=== PATIENT | male | born 1975 | race Caucasian/White ===

== ENCOUNTER 2021-01-16 01:01 | Emergency (ER) | payer OTHER, SELFPAY ==
--- NOTE | ~2021-01-16 | XR_ITS ---
EXAMINATION: XR chest 2V 01/16/2021 01:54 INDICATION: Shortness of breath PROCEDURE: 2 view chest COMPARISON: 07/01/2016 FINDINGS: The lungs are clear. The cardiomediastinal silhouette is within normal limits. There are no pleural effusions. There is no pneumothorax suspected. IMPRESSION: 1: NO ACUTE CARDIOPULMONARY DISEASE. Reviewed, dictated and finalized at location A.
--- NOTE | 2021-01-16 01:02 | ECG_ITS ---
Measurements Intervals [place] Rate: 82 P: 40 LA: 130 QRS: -5 QRSD: 89 T: 65 QT: 335 QTc: 392 Interpretive Statements SINUS RHYTHM DELAYED PRECORDIAL R/S TRANSITION BASELINE WANDER- III BORDERLINE ECG Electronically Signed On 01-16-2021 6:21:13 CDT by Cricket Corey D.O.
[2021-01-16 01:05] VITALS: BP 156/89; PULSE 104; RESP 20; TEMP 36.2; O2SAT 100
[2021-01-16 01:29] LABS: Anion Gap 8 mmol/L (8-16); Blood Urea Nitrogen 16 mg/dL (9-20); Calcium 9.1 mg/dL (8.4-10.2); Carbon Dioxide 28 mmol/L (22-30); Chloride 104 mmol/L (98-107); Estimated CRCL calculation 133 ml/min; Estimated Glomerular Filt Rate > 60; Glucose 103 mg/dL (65-110); Potassium 3.8 mmol/L (3.4-5.0); Sodium 140 mmol/L (137-145)
[2021-01-16 01:36] LABS: Basophils Percent Auto 0.4 % (0.2-1.2); Eosinophils Absolute Auto 0.2 K/mm3 (0-0.3); Eosinophils Percent Auto 2.5 % (0-4.4); Hematocrit 39.8 % (42.0-52.0); Hemoglobin 13.4 g/dL (14.0-18.0); Immature Granulocyte Absolute 0.02 K/mm3 (0.00-0.031); Immature Granulocyte Percent A 0.2 % (0-0.5); Lymphocytes Absolute Auto 3.12 K/mm3 (0.9-3.2); Lymphocytes Percent Auto 33.4 % (18.3-44.2); Mean Corpuscular HGB Conc 33.7 g/dl (32-36); Mean Corpuscular Hemoglobin 31.6 pg (26-34); Mean Corpuscular Volume 93.9 fl (80-100); Mean Platelet Volume 9.5 fl (7.4-10.4); Monocytes Absolute Auto 0.6 K/mm3 (0.1-0.6); Monocytes Percent Auto 6.3 % (2.6-8.5); Neutrophils Absolute Auto 5.3 K/mm3 (1.3-6.7); Neutrophils Percent Auto 57.2 % (45.5-73.1); Platelet Count Result 246 k/mm3 (150-375); Red Blood Count 4.24 M/mm3 (4.6-6.20); Red Cell Distribution Width 13.8 % (11.5-14.5); White Blood Count 9.3 K/mm3 (4.5-10.0)
[2021-01-16 02:15] VITALS: BP 130/83; PULSE 81; RESP 20; O2SAT 99
[2021-01-16 02:16] VITALS: O2SAT 100
--- NOTE | 2021-01-16 03:32 | ED.SOB ---
HPI - SOB/Dyspnea General Chief Complaint: Shortness of Breath/Dyspnea Stated Complaint: woke up breathing heavy Time Seen by Provider: 01/16/21 02:16 Source: patient and RN notes reviewed Mode of arrival: ambulatory Limitations: no limitations History of Present Illness HPI Narrative: This is a 45 year old male who presents for evaluation of shortness of breath. He states he felt fine when he went to sleep last night. He woke up around midnight breathing hard and feeling short of breath. He thought his heart was racing but his watch reported his heart rate was normal. He denies associated nausea, vomiting, chest pain. He states he felt like he ran mile and this feeling lasted for 45 minutes. He reports mild shortness of breath with walking around here but otherwise his symptoms have all resolved. He denies calf pain or new edema. He denies recent surgery or travel. Denies cardiac or lung disease. Related Data Home Medications Medication Instructions Recorded Confirmed cyclobenzaprine 10 mg tablet 10 mg PO BID PRN tablet 06/03/20 06/04/20 hydrocodone 7.5 mg-acetaminophen 1 tablet PO Q6H PRN 06/03/20 06/04/20 325 mg tablet ibuprofen 800 mg tablet 800 mg PO Q6H 06/03/20 06/04/20 irbesartan 150 mg tablet 150 mg PO DAILY 06/03/20 06/04/20 Allergies Allergy/AdvReac Type Severity Reaction Status Date / Time No Known Allergies Allergy Mild Verified 01/16/21 02:16 Review of Systems Review of Systems: All systems reviewed & are unremarkable except as noted in HPI and below PMFSH Past Medical History Medical History Back pain Hyperlipidemia Hypertension Social History Social History Smoking status: Former smoker Smoking end date: 04/03/07 Alcohol intake: current Exam Const: General: alert Nutritional Appearance: obese Orientation/consciousness: patient oriented x3 Eyes: EOM: EOMs intact bilaterally Chest: Chest palpation & inspection: normal inspection of the chest Resp: Effort & Inspection: normal respiratory effort and no retractions Auscultation: clear to auscultation bilaterally Cardio: Rate: regular rate Rhythm: regular rhythm Heart sounds: no murmurs GI: GI Palp: Yes Soft to palpation, No Tenderness to palpation present (GI) and No Guarding due to palpation present (GI) Auscultation: normal bowel sounds Skin: General skin exam: normal color Rashes: no rashes Neuro: General: patient oriented x3, moves all extremities and CN's II-XI intact bilaterally Extrem: General: normal to inspection Psych: Mental Status: mental status grossly normal Affect: normal affect Course Reevaluation(s) Reevaluation #1: PAtient has no complaints at this time. His evaluated has esperanza unremarkable and his vitals are stable at this time. cardiac evaluated normal currently. D dimer is negative. Date: 01/16/21 Time: 05:15 Vital Signs Vital signs: Vital Signs Temperature 97.2 F L 01/16/21 01:05 Pulse Rate 104 H 01/16/21 01:05 Respiratory Rate 20 01/16/21 01:05 Blood Pressure 156/89 H 01/16/21 01:05 Pulse Oximetry 100 01/16/21 01:05 Temperature 97.2 F L 01/16/21 01:05 Pulse Rate 83 01/16/21 05:29 Respiratory Rate 19 01/16/21 05:29 Blood Pressure 130/81 01/16/21 05:29 Pulse Oximetry 100 01/16/21 05:29 MDM - SOB/Dyspnea Lab Data Attestation: I reviewed the patient's lab results. Result diagrams: 01/16/21 01:13 01/16/21 01:13 Labs: Lab Results 01/16/21 01/16/21 01/16/21 Range/Units 01:11 01:11 01:13 WBC 9.3 (4.5-10.0) K/mm3 RBC 4.24 L (4.6-6.20) M/mm3 Hgb 13.4 L (14.0-18.0) g/dL Hct 39.8 L (42.0-52.0) % MCV 93.9 (80-100) fl MCH 31.6 (26-34) pg MCHC 33.7 (32-36) g/dl RDW 13.8 (11.5-14.5) % Plt Count 246 (150-375) k/mm3 MPV 9.5 (7.4-10.4) fl Immature Gran % (Auto)
[2021-01-16 03:42] VITALS: BP 138/84; PULSE 80; RESP 16; O2SAT 100
[2021-01-16 03:53] LABS: D Dimer 0.32 ug/mL (<0.48)
[2021-01-16 04:07] LABS: NT Pro B Type Natriuretic Pept 28 pg/mL (5-100); Troponin I < 0.012 ng/mL (0.000-0.034)
[2021-01-16 05:04] VITALS: BP 132/89; PULSE 80; RESP 18; O2SAT 100
[2021-01-16 05:29] VITALS: BP 130/81; PULSE 83; RESP 19; O2SAT 100
== END 2021-01-16 05:34 | disposition home or self-care (01) ==
PROVIDERS: Emergency Provider General Practice; PCP Emergency Medicine
DX: R06.01 Orthopnea (principal); E78.5 Hyperlipidemia, unspecified; I10 Essential (primary) hypertension; Z87.891 Personal history of nicotine dependence; R94.31 Abnormal electrocardiogram [ECG] [EKG]
CPT/HCPCS: 36415; 71046; 80048; 83735; 83880; 84484; 85025; 85380; 93005; 99284

== ENCOUNTER 2021-10-10 10:23 | Emergency (ER) | payer OTHER, SELFPAY ==
[2021-10-10 10:41] VITALS: BP 136/88; PULSE 109; RESP 16; TEMP 36.4; O2SAT 99
--- NOTE | 2021-10-10 12:52 | ED.ANIMALBIT ---
HPI - Animal Bite General Chief Complaint: Animal Bite Stated Complaint: bit by 2 dogs Time Seen by Provider: 10/10/21 11:48 History of Present Illness HPI narrative: 46-year-old male presents secondary to dog bites. He states he went to get his garbage cans in from the street and the neighbors gate was open and his dogs were out. He did walk around to his own backyard and put the garbage cans away. He came back to his house and he saw that the neighbors gate was still open and the neighbor was gone so he is going to get the dogs and put him in their backyard. He states he called the dogs and they started growling and then charged him and attacked him. He sustained a puncture wound laceration to the back of the right leg around the knee area is got another abrasion to the right lateral aspect of his knee as well as an abrasion to the right lower aspect of his abdomen. Did not get knocked to the ground. He had no loss conscious. Is not up-to-date on his tetanus status. Related Data Home Medications Medication Instructions Recorded Confirmed cyclobenzaprine 10 mg tablet 10 mg PO BID PRN Pain 06/03/20 09/28/21 hydrocodone 7.5 mg-acetaminophen 1 tablet PO Q6H PRN Pain 06/03/20 09/28/21 325 mg tablet irbesartan 150 mg tablet 150 mg PO DAILY 06/03/20 09/28/21 Allergies Allergy/AdvReac Type Severity Reaction Status Date / Time No Known Allergies Allergy Mild Verified 10/10/21 10:46 Review of Systems Review of Systems: CONSTITUTIONAL: Denies fever, chills, or sweats. EYES: Denies visual changes, redness, or discharge. ENT: Denies rhinorrhea, congestion, sore throat, or otalgia. CARDIOVASCULAR: Denies chest pain, palpitations, or edema. RESPIRATORY: Denies cough or dyspnea. GASTROINTESTINAL: Denies abdominal pain, nausea, vomiting, or diarrhea. GENITOURINARY: Denies dysuria or hematuria. SKIN: Denies rash or itching. MUSCULOSKELETAL: As per HPI extensive puncture wounds and superficial lacerations NEUROLOGIC: Denies headache, numbness, or weakness. PSYCHIATRIC: Denies anxiety or depression. [facility] Past Medical History Medical History Back pain Hyperlipidemia Hypertension Social History Social History Smoking status: Never smoker Smoking end date: 04/03/07 Alcohol intake: current Exam Narrative: APPEARANCE: Well appearing, no pain or distress, well-nourished. Head normocephalic and atraumatic. EYES: PERRLA/EOMI, conjunctivae very clear. NOSE: Normal with no drainage EARS:TMS clear Aury Orellana, with good light reflex. THROAT: Pharynx clear, no exudate. NECK: Supple. No adenopathy, no masses. RESPIRATORY: Airway patent, respirations nonlabored. Clear to auscultation bilaterally, no rales, rhonchi, wheezing. CARDIOVASCULAR: Regular rate and rhythm without murmurs, rubs, or gallops. ABDOMINAL: Soft, nontender, nondistended, no hepatosplenomegaly. Noted to have about a 2 cm abrasion to the right lower abdominal wall Musculoskeletal: Moves all extremities. Strength/ROM intact, No edema, No calf tenderness. Posterior aspect of the left knee noted to have some superficial abrasions and 1 puncture wound is about 1 cm in length. To the right knee on the lateral aspect is got an abrasion approximately 2 cm in diameter. No active bleeding no foreign bodies noted NEURO: Alert. Cranial nerves II through XII intact. Normal gait. Good coordination. Nonfocal examination. SKIN:: Warm, dry. Normal Color PSYCHIATRIC: Normal affect/mood, normal interaction Course Vital Signs Vital signs: Vital Signs Temperature 97.6 F 10/10/21 10:41 Pulse Rate 109 H 10/10/21 10:41 Respiratory Rate 16 10/10/21 10:41 Blood Pressure 136/88 10/10/21 10:41 Pulse Oximetry 99 10/10/21 10:41 Oxygen Delivery Room Air 10/10/21 10:41 Temperature 97.6 F 10/10/21 10:41 Pulse Rate 109 H 10/10/21 10:41 Respiratory Rate
[2021-10-10] MEDS: TETANUS,DIPHTHERIA,AC PERTUSSIS ADULT (0.5 ML) BOOSTRIX IM (12:59)
--- NOTE | 2021-10-10 13:02 | PC.NURSE ---
ADACEL Tdap given per VO Dr. Romo/RB Magdaleno, RN
[2021-10-10 13:07] VITALS: BP 136/88; PULSE 78; RESP 16; TEMP 36.8; O2SAT 98
== END 2021-10-10 13:14 | disposition home or self-care (01) ==
PROVIDERS: Emergency Provider Emergency Medicine; PCP Emergency Medicine
DX: S81.851A Open bite, right lower leg, initial encounter (principal); S81.852A Open bite, left lower leg, initial encounter; E78.5 Hyperlipidemia, unspecified; I10 Essential (primary) hypertension; Z23 Encounter for immunization; W54.0XXA Bitten by dog, initial encounter
CPT/HCPCS: 90471; 90715; 99283

== ENCOUNTER 2024-05-15 19:17 | Emergency (ER) | payer OTHER, SELFPAY ==
--- NOTE | ~2024-05-15 | XR_ITS ---
CHEST RADIOGRAPH, PA AND LATERAL CLINICAL HISTORY: sob . COMPARISON: 01/16/2021 TECHNIQUE: PA and lateral views of the chest. FINDINGS The cardiomediastinal silhouette is unremarkable. The lungs are clear. Visualized osseous structures and soft tissues are unremarkable. IMPRESSION: No focal infiltrate or effusion. Reviewed, dictated and finalized at location A. CE COMMUNICATIONS DISPATCHER
--- NOTE | 2024-05-15 19:19 | ECG_ITS ---
Test Date: 2024-05-15 19:24:33 Measurements Intervals [place] Rate: 79 P: 44 ND: 132 QRS: -10 QRSD: 92 T: 63 QT: 363 QTc: 417 Interpretive Statements SINUS RHYTHM BORDERLINE R WAVE PROGRESSION, ANTERIOR LEADS BORDERLINE ST-T WAVE ABNORMALITY- HIGH LATERAL LEADS BASELINE ARTIFACT- I, III, AVL, V2 BORDERLINE ECG No previous ECG available for comparison Electronically Signed On 05-16-2024 05:28:54 EXCHANGE SPECIALIST by Cricket Corey D.O.
--- OUTSIDE RECORDS SUMMARY | 2024-05-15 19:19 | XMS_ITS | Clinical Summary ---
Author Organization [facility] Address [address] [place] [address] Care Team Providers Care Abstract Searcher Name Role Phone Koffi Talamantes MD Primary Care Provider Allergies No known active allergies Medications HYDROcodone-acet aminophen 7.5-325 MG tablet Take 1 tablet by mouth 3 (three) times daily as needed. 05/05/2020 Active cyclobenzaprine 10 MG tablet Take 10 mg by mouth 2 (two) times daily as needed. 05/05/2020 Active ibuprofen 800 MG tablet Take 800 mg by mouth every 8 (eight) hours as needed for Pain. 05/05/2020 Active Social History Tobacco Use Types Packs/Day Years Used Date Smoking Tobacco: Never Smokeless Tobacco: Never Alcohol Use Standard Drinks/Week Comments Never 0 (1 standard drink = 0.6 oz pur e alcohol) AUDIT-C Answer Date Recorded Q1: How often do you have a drink containing alc ohol? Never 05/22/2020 Average Number of Drinks Not on file 021 Frequency of Binge Drinking Not on file 05/04 Sex and Gender Information Value Date Recorded Sex Assigned at Not on file Legal Sex Male 11:14 AM TIPPLE REPAIRER Gender Identity Not on file Sexual Orientation Not on file Last Filed Vital Signs Vital Sign Reading Time Taken Comments Blood Pressure 158/98 05/22/2020 4:03 PM TIPPLE REPAIRER Pulse 98 05/22/2020 4:03 PM TIPPLE REPAIRER Temperature 37.2 C (98.9 F) 05/22/2020 11:35 AM TIPPLE REPAIRER Respiratory Rate 20 05/22/2020 4:03 PM TIPPLE REPAIRER Oxygen Saturation 100% 05/22/2020 4:03 PM TIPPLE REPAIRER Inhaled Oxygen Concentration - - Weight 141.5 kg (312 lb) 05/22/2020 11:35 AM TIPPLE REPAIRER Height 188 cm (6' 2 ) 05/22/2020 11:35 AM TIPPLE REPAIRER Body Mass Index 40.06 05/22/2020 11:35 AM TIPPLE REPAIRER Plan of Treatment Health Maintenance Due Date Last Done Comments Colorectal Cancer Screening Colonoscopy (10 Years) 1975 Annual Physical 09/22/1978 Hepatitis C 09/22/1993 DTaP, Tdap and Td Vaccines ( 1 - Tdap) 09/22/1994 Hepatitis B Vaccines (1 of 3 - 19+ 3-dose series) 09/22/1994 COVID-19 Vaccine (2023-2 5 season) 2023 Influenza Adult (#1) 2024 Meningococcal B Vaccine Aged Out No l onger eligible based on patient's age to complete this topic Meningococcal Vaccine Aged Out No matti kacie eligible based on patient's age to complete this topic Pneumococcal Vaccine: Pediat rics (0 to 5 Years) and At-Risk Patients (6 to 64 Years) Aged Out No longer eligible b ased on patient's age to complete this topic RSV Immunizations Under 20 Months Aged Out No longer eligible based on patient's age to complete this topic Insurance Care Teams Abstract Searcher Relationship Specialty Start Date End Date Koffi Talamantes MD PCP - General FAMILY PRACTICE 05/22/20
[2024-05-15 19:20] VITALS: BP 145/80; PULSE 92; RESP 16; TEMP 36.6; O2SAT 99
[2024-05-15 19:37] LABS: Basophils Absolute Auto 0.1 K/mm3 (0.0-0.1); Basophils Percent Auto 0.6 % (0.2-1.2); Eosinophils Absolute Auto 0.1 K/mm3 (0-0.3); Eosinophils Percent Auto 1.7 % (0-4.4); Hematocrit 42.3 % (42.0-52.0); Hemoglobin 14.1 g/dL (14.0-18.0); Immature Granulocyte Absolute 0.02 K/mm3 (0.00-0.031); Immature Granulocyte Percent A 0.2 % (0-0.5); Lymphocytes Absolute Auto 1.95 K/mm3 (0.9-3.2); Lymphocytes Percent Auto 23.5 % (18.3-44.2); Mean Corpuscular HGB Conc 33.3 g/dl (32-36); Mean Corpuscular Hemoglobin 30.2 pg (26-34); Mean Corpuscular Volume 90.6 fl (80-100); Mean Platelet Volume 9.4 fl (7.4-10.4); Monocytes Absolute Auto 0.4 K/mm3 (0.1-0.6); Monocytes Percent Auto 4.6 % (2.6-8.5); Neutrophils Absolute Auto 5.8 K/mm3 (1.3-6.7); Neutrophils Percent Auto 69.4 % (45.5-73.1); Platelet Count Result 257 k/mm3 (150-375); Red Blood Count 4.67 M/mm3 (4.6-6.20); Red Cell Distribution Width 13.7 % (11.5-14.5); White Blood Count 8.3 K/mm3 (4.5-10.0)
[2024-05-15 19:47] LABS: Alanine Aminotransferase 25 U/L (6-50); Albumin Level 4.3 g/dL (3.5-5.1); Alkaline Phosphatase 80 U/L (38-126); Anion Gap 9 mmol/L (4-12); Aspartate Amino Transferase 25 U/L (17-59); Bilirubin,Total 0.7 mg/dL (0.2-1.3); Blood Urea Nitrogen 12 mg/dL (9-20); Calcium 9.2 mg/dL (8.4-10.2); Carbon Dioxide 29 mmol/L (22-30); Chloride 101 mmol/L (98-107); Estimated CRCL calculation 138 ml/min; Estimated Glomerular Filt Rate > 60; Glucose 107 mg/dL (65-110); Potassium 3.7 mmol/L (3.4-5.0); Sodium 139 mmol/L (137-145)
[2024-05-15 20:28] LABS: Influenza A QL RT-PCR Negative (Negative); Influenza B QL RT-PCR Negative (Negative); RSV RNA, RT-PCR Negative (Negative); SARS-CoV-2 RNA PCR Negative (Negative)
[2024-05-15 20:42] VITALS: PULSE 73
--- NOTE | 2024-05-15 20:43 | ED.SOB ---
HPI - SOB/Dyspnea General Chief Complaint: Shortness of Breath/Dyspnea Stated Complaint: feeling a little funny Time Seen by Provider: 05/15/24 20:35 History of Present Illness HPI Narrative: 48-year-old otherwise healthy male with history of hypertension presenting to the emergency room with chief complaint of some shortness of breath and mild cough, dizziness. Patient was otherwise in his normal state of health but does have sick contacts at work. States he was feeling fine and felt like he was going to pass out at work after having some coughing and shortness of breath which gradually got better as he rested and throughout the day. Presently denies any trouble breathing or chest discomfort. No chest pain or pressure. No nausea, vomiting, abdominal pain or back pain. Was otherwise in his normal state of health. Denies any fever chills. Related Data Home Medications ?Medication ?Instructions ?Recorded ?Confirmed ?Last Taken ?Type cyclobenzaprine 10 mg tablet 10 mg PO BID PRN Pain 06/03/20 09/28/21 Unknown History hydrocodone 7.5 mg-acetaminophen 1 tablet PO Q6H PRN Pain 06/03/20 09/28/21 Unknown History 325 mg tablet irbesartan 150 mg tablet 150 mg PO DAILY 06/03/20 09/28/21 Unknown History Allergies Allergy/AdvReac Type Severity Reaction Status Date / Time No Known Allergies Allergy Mild Verified 05/15/24 19:23 Review of Systems Review of Systems: As reviewed above in HPI [facility] Past Medical History Medical History Hyperlipidemia Hypertension Back pain Social History Social History Smoking status: Never smoker Smoking end date: 04/03/07 Alcohol intake: current Exam Narrative: GENERAL: [Well-appearing, well-nourished, and in no acute distress.] HEAD: [Normocephalic, atraumatic.] EYES: [PERRLA and EOMI.] ENT: Nares clear, no rhinorrhea or epistaxis. Mucous membranes moist. NECK: Supple. CHEST: Very coarse breath sounds in the right apex and base of his lung compared to the left side which is clear with vesicular breath sounds. No wheezing or prolonged expiratory phase. No tachypnea, no retractions or accessory muscle use HEART: [Regular rate and rhythm]. No murmur heard. [Normal peripheral pulses.] ABDOMEN: [Soft, nondistended], [nontender], [No rigidity or guarding] EXTREMITIES: Normal range of motion. [No edema.] SKIN: Warm, dry, no rash. NEURO: [No focal deficits]. Alert and oriented [x3.] PSYCH: [Normal mood and affect.] Course Vital Signs Vital signs: Vital Signs Temperature 36.6 C 05/15/24 19:20 Pulse Rate 92 05/15/24 19:20 Respiratory Rate 16 05/15/24 19:20 Blood Pressure 145/80 H 05/15/24 19:20 Pulse Oximetry 99 05/15/24 19:20 Oxygen Delivery Room Air 05/15/24 19:20 Temperature 36.6 C 05/15/24 19:20 Pulse Rate 73 05/15/24 20:42 Respiratory Rate 16 05/15/24 19:20 Blood Pressure 145/80 H 05/15/24 19:20 Pulse Oximetry 99 05/15/24 19:20 Oxygen Delivery Room Air 05/15/24 19:20 MDM - SOB/Dyspnea MDM Narrative Medical decision making narrative: 48-year-old otherwise healthy male with past medical history including stable hypertension presenting to the emergency room with chief complaint of shortness of breath, feeling dizzy at work. No chest pain or pressure. Symptoms slowly gradually got worse over the day and presently asymptomatic at rest. No fever, hypoxia, tachycardia or tachypnea. Stable blood pressure. He is very coarse sounding lungs on the right side apex and base suspicious for potential early infiltrate or pneumonia or even a bronchitis this focal. He has had a cough and sick contacts. Will obtain a two view chest x-ray, COVID flu RSV and basic laboratory studies. Workup shows no leukocytosis or anemia. Normal platelet count. Electrolytes within normal limits, normal renal and hepatic function panel. Negative COVID, flu, RSV swabs. Chest x-ray shows no large infiltrates or any overt pneumonia. Given patient's very rhonchorous and asymmetric breath sounds with subjective dyspnea will treat him for potential bronchitis versus early signs of pneumonia. Give him a dose of azithromycin here in the ED and sent home with a Z-Ashley. Patient will have close outpatient follow-up with his PCP and return if he has any new or worsening concerns at any time. Patient is safe for discharge. Medical Records Attestation: I reviewed the patient's medical records. Lab Data Attestation: I reviewed the patient's lab results. 05/15/24 19:32 05/15/24 19:32 Labs: Lab Results 05/15/24 05/15/24 Range/Units 19:26 19:32 WBC 8.3 (4.5-10.0) K/mm3 RBC 4.67 (4.6-6.20) M/mm3 Hgb 14.1 (14.0-18.0) g/dL Hct 42.3 (42.0-52.0) % MCV 90.6 (80-100) fl MCH 30.2 (26-34) pg MCHC 33.3 (32-36) g/dl RDW 13.7 (11.5-14.5) % Plt Count 257 (150-375) k/mm3 MPV 9.4 (7.4-10.4) fl Immature Gran % (Auto) 0.2 (0-0.5) % Neut % (Auto) 69.4 (45.5-73.1) % Lymph % (Auto) 23.5 (18.3-44.2) % [place] % (Auto) 4.6 (2.6-8.5) % Eos % (Auto) 1.7 (0-4.4) % Baso % (Auto) 0.6 (0.2-1.2) % Lymph # (Auto) 1.95 (0.9-3.2) K/mm3 [place] # (Auto) 0.4 (0.1-0.6) K/mm3 Eos # (Auto) 0.1 (0-0.3) K/mm3 Baso # (Auto) 0.1 (0.0-0.1) K/mm3 Abs Immat Gran (auto) 0.02 (0.00-0.031) K/mm3 Absolute Neuts (auto) 5.8 (1.3-6.7) K/mm3 Absolute Nucleated RBC 0.000 (0.0-0.012) K/mm3 Nucleated RBC % 0.0 (0.0-0.2) % Sodium 139 (137-145) mmol/L Potassium 3.7 (3.4-5.0) mmol/L Chloride 101 (98-107) mmol/L Carbon Dioxide 29 (22-30) mmol/L Anion Gap 9 (4-12) mmol/L BUN 12 (9-20) mg/dL Creatinine 0.81 (0.7-1.3) mg/dL Estim Creat Clear Calc 138 ml/min Estimated GFR > 60 (59 - ) Glucose 107 (65-110) mg/dL Calcium 9.2 (8.4-10.2) mg/dL Total Bilirubin 0.7 (0.2-1.3) mg/dL AST 25 (17-59) U/L ALT 25 (6-50) U/L Alkaline Phosphatase 80 (38-126) U/L Total Protein 8.0 (6.3-8.2) g/dL Albumin 4.3 (3.5-5.1) g/dL Influenza A (RT-PCR) Negative (Negative) Influenza B (RT-PCR) Negative (Negative) RSV (RT-PCR) Negative (Negative) SARS-CoV-2 RNA (RT-PCR) Negative (Negative) Imaging Data Attestation: I personally reviewed and interpreted this imaging study as follows: My impression: Impressions Chest X-Ray 05/15/24 20:15 IMPRESSION: No focal infiltrate or effusion. Discharge Plan Discharge Clinical Impression: Bronchitis, Dyspnea Patient Disposition: Home, Self-Care Condition: Stable Instructions: Antibiotic Form, Acute Bronchitis (ED), Community Acquired Pneumonia (ED) Additional Instructions: Your chest x-ray does not show any large pneumonia but you do have very coarse sounding right lung sounds suspicious for potential early pneumonia versus bronchitis. We will send you home with azithromycin. Take Tylenol and ibuprofen for any fever or chills. Return to work and follow-up with regular doctor as an outpatient visit. Return if you have any new or worsening concerns at any time. Patient Language: Monegasque Prescriptions: New azithromycin [Zithromax TRI-ASHLEY] 500 mg tablet 500 mg PO DAILY 5 Days Qty: 5 0RF No Action hydrocodone-acetaminophen 7.5-325 mg tablet 1 tablet PO Q6H PRN (Reason: Pain) cyclobenzaprine 10 mg tablet 10 mg PO BID PRN (Reason: Pain) irbesartan 150 mg tablet 150 mg PO DAILY amoxicillin-pot clavulanate [Augmentin XR] 1,000-62.5 mg tablet extended release 12 hr 1 tablet PO Q12H Qty: 20 0RF Follow-up/Referrals: Koffi Talamantes MD [Primary Care Provider] - Time of Disposition: 20:49
[2024-05-15 20:46] VITALS: BP 137/90; PULSE 77; RESP 20; TEMP 36.4; O2SAT 100
[2024-05-15] MEDS: AZITHROMYCIN 250 MG TABLET 500 MG PO (20:47)
[2024-05-15 20:49] VITALS: O2SAT 100
[2024-05-15 20:51] VITALS: RESP 20; O2SAT 100
--- OUTSIDE RECORDS SUMMARY | 2024-05-15 20:55 | XMS_ITS | Clinical Summary ---
Author Organization [facility] Address [address] [place] [address] Care Team Providers Care Clinical Data Analyst Name Role Phone Koffi Talamantes MD Primary Care Provider [phone] Allergies No known active allergies Medications HYDROcodone-acet [...] on file Legal Sex Male 11:14 AM RECORD TESTER Gender Identity Not on file Sexual Orientation Not on file Last Filed Vital Signs Vital Sign Reading Time Taken Comments Blood Pressure 158/98 05/22/2020 4:03 PM RECORD TESTER Pulse 98 05/22/2020 4:03 PM RECORD TESTER Temperature 37.2 C (98.9 F) 05/22/2020 11:35 AM RECORD TESTER Respiratory Rate 20 05/22/2020 4:03 PM RECORD TESTER Oxygen Saturation 100% 05/22/2020 4:03 PM RECORD TESTER Inhaled Oxygen Concentration - - Weight 141.5 kg (312 lb) 05/22/2020 11:35 AM RECORD TESTER Height 188 cm (6' 2 ) 05/22/2020 11:35 AM RECORD TESTER Body Mass Index 40.06 05/22/2020 11:35 AM RECORD TESTER Plan of Treatment Health Maintenance Due Date [...] to complete this topic Insurance Care Teams Clinical Data Analyst Relationship Specialty Start Date End Date Koffi Talamantes MD PCP - General FAMILY PRACTICE 05/22/20
== END 2024-05-15 21:02 | disposition home or self-care (01) ==
LOC: ANHED 20:53
PROVIDERS: Emergency Medicine; Emergency Provider Student in an Organized Health Care Education/Training Program; PCP Emergency Medicine
DX: J40 Bronchitis, not specified as acute or chronic (principal); Z20.822 Contact with and (suspected) exposure to COVID-19; E78.5 Hyperlipidemia, unspecified; I10 Essential (primary) hypertension; Z87.891 Personal history of nicotine dependence; R94.31 Abnormal electrocardiogram [ECG] [EKG]
CPT/HCPCS: 36415; 71046; 80053; 85025; 87637; 93005; 99284; A9270

== ENCOUNTER 2024-05-26 03:35 | Emergency (ER) | payer OTHER, SELFPAY ==
--- NOTE | ~2024-05-26 | XR_ITS ---
EXAMINATION: XR chest 1V portable DATE: 05/26/2024 04:23 INDICATION: Shortness of breath. TECHNIQUE: A single frontal view of the chest was obtained. COMPARISON: Chest 2 views 05/15/2024, chest CT 05/29/2018 FINDINGS: There is no pneumonia, pleural effusion, or pneumothorax. The heart size is normal. IMPRESSION: 1. No acute cardiopulmonary disease. Reviewed, dictated and finalized at location A. [facility]
[2024-05-26 03:37] VITALS: BP 119/77; PULSE 95; RESP 17; TEMP 36.4; O2SAT 100
--- OUTSIDE RECORDS SUMMARY | 2024-05-26 03:38 | XMS_ITS | Clinical Summary ---
Author Organization [facility] Address [address] [place] [address] Care Team Providers Care Rayon Coner Name Role Phone Koffi Talamantes MD Primary Care Provider [phone] Allergies No known active allergies Medications HYDROcodone-acet [...] on file Legal Sex Male 11:14 AM COGNOS CONSULTANT Gender Identity Not on file Sexual Orientation Not on file Last Filed Vital Signs Vital Sign Reading Time Taken Comments Blood Pressure 158/98 05/22/2020 4:03 PM COGNOS CONSULTANT Pulse 98 05/22/2020 4:03 PM COGNOS CONSULTANT Temperature 37.2 C (98.9 F) 05/22/2020 11:35 AM COGNOS CONSULTANT Respiratory Rate 20 05/22/2020 4:03 PM COGNOS CONSULTANT Oxygen Saturation 100% 05/22/2020 4:03 PM COGNOS CONSULTANT Inhaled Oxygen Concentration - - Weight 141.5 kg (312 lb) 05/22/2020 11:35 AM COGNOS CONSULTANT Height 188 cm (6' 2 ) 05/22/2020 11:35 AM COGNOS CONSULTANT Body Mass Index 40.06 05/22/2020 11:35 AM COGNOS CONSULTANT Plan of Treatment Health Maintenance Due Date [...] to complete this topic Insurance Care Teams Rayon Coner Relationship Specialty Start Date End Date Koffi Talamantes MD PCP - General FAMILY PRACTICE 05/22/20
--- NOTE | 2024-05-26 03:43 | ECG_ITS ---
Test Date: 2024-05-26 03:46:24 Measurements Intervals [place] Rate: 90 P: 57 [place]: 134 QRS: 12 QRSD: 84 T: 72 QT: 326 QTc: 401 Interpretive Statements SINUS RHYTHM BASELINE ARTIFACT- I, II ,AVR, AVL NORMAL ECG Compared to ECG 05/15/2024 19:24:33 No significant changes Electronically Signed On 05-26-2024 07:07:51 REPORT CLERK by Cricket Corey D.O.
[2024-05-26 04:01] VITALS: BP 132/84; PULSE 85; RESP 19; O2SAT 99
[2024-05-26 04:02] VITALS: PULSE 89
--- NOTE | 2024-05-26 04:05 | ED.ARRPALP ---
HPI - Arrhythmia/Palpitations General Chief Complaint: Arrhythmia/Palpitations Stated Complaint: heart racing, indigestion Time Seen by Provider: 05/26/24 03:54 History of Present Illness HPI narrative: Patient is a 48-year-old male who presents to the emergency department this morning with multiple complaints. Patient states that he feels as though he has got some indigestion, states that he was getting ready to go to bed but noticed that his heart was beating fast. Also states that he feels short of breath and winded as if he ran a marathon. Denies any history of any cardiovascular disease including coronary artery disease and congestive heart failure. States that he has been lightheaded today all day, admits that he has been around someone who was exposed to COVID but other than that denies any recent illness or any URI symptoms. Patient was seen at our facility approximately 10 days ago for shortness of breath and was sent home with a Z-Pual which he states he did complete. Denies any nausea, vomiting or diarrhea. Denies any chest pain or abdominal pain. No additional symptoms or concerns at this time. Related Data Home Medications ?Medication ?Instructions ?Recorded ?Confirmed ?Last Taken ?Type cyclobenzaprine 10 mg tablet 10 mg PO BID PRN Pain 06/03/20 09/28/21 Unknown History hydrocodone 7.5 mg-acetaminophen 1 tablet PO Q6H PRN Pain 06/03/20 09/28/21 Unknown History 325 mg tablet irbesartan 150 mg tablet 150 mg PO DAILY 06/03/20 09/28/21 Unknown History Allergies Allergy/AdvReac Type Severity Reaction Status Date / Time No Known Allergies Allergy Mild Verified 05/26/24 03:36 Review of Systems Review of Systems: All systems are reviewed and are negative unless stated otherwise in the HPI. [facility] Past Medical History Medical History Hyperlipidemia Hypertension Back pain Social History Social History Smoking status: Never smoker Smoking end date: 04/03/07 Alcohol intake: current Exam Narrative: General: Alert, awake, afebrile, in no acute distress, obese. HEENT: PERRL, no rhinorrhea, no post nasal drip, oropharynx clear. Neck: Trachea midline, no JVD, no lymphadenopathy. Cardiovascular: Regular rate and rhythm, no murmurs, rubs or gallops, no peripheral edema. Respiratory: Clear to auscultation bilaterally, no tachypnea, no wheezing, no rhonchi, no rubs, no respiratory distress. Abdomen: Soft, nontender, nondistended, no rebound, no guarding, no peritoneal signs. Musculoskeletal: No joint swelling or deformity, normal muscle tone. Skin: No rashes or petechia, no signs of infection. Psychiatric: Alert and oriented, normal behavior and judgment for situation. Neurological: Alert and oriented to person, place, and time. Follows all commands. No focal deficits, speech is clear and fluent. Course Vital Signs Vital signs: Vital Signs Temperature 97.5 F L 05/26/24 03:37 Pulse Rate 95 05/26/24 03:37 Respiratory Rate 17 05/26/24 03:37 Blood Pressure 119/77 05/26/24 03:37 Pulse Oximetry 100 05/26/24 03:37 Oxygen Delivery Room Air 05/26/24 03:37 Temperature 97.5 F L 05/26/24 03:37 Pulse Rate 89 05/26/24 04:02 Respiratory Rate 19 05/26/24 04:01 Blood Pressure 132/84 05/26/24 04:01 Pulse Oximetry 99 05/26/24 04:01 Oxygen Delivery Room Air 05/26/24 04:21 MDM - Arrhythmia/Palpitations MDM Narrative Medical decision making narrative: The patient was evaluated by myself in the emergency department. History is obtained from patient who is an independent historian and physical exam was performed. External medical records were reviewed at this time. IV was established and pertinent tests were ordered. Patient was administered 2 L IV fluid bolus with normal saline. EKG was obtained which revealed sinus rhythm rate of 90 beats per minute. No ST changes, T wave inversions or evidence of acute ischemia. EKG was independently interpreted by me and is currently pending official cardiology read. Laboratory results obtained revealing no acute process. BNP noted to be within normal limits. Troponin negative. Viral swabs were obtained and noted to be negative for COVID/influenza/RSV. Imaging studies obtained included CXR which was independently interpreted by me revealing no acute cardiopulmonary process, which is pending final radiology interpretation. Differential diagnosis considerations include acute viral syndrome, infectious process such as pneumonia, acute stress reaction, dehydration. Comorbidities impacting this visit include none. I have evaluated and discussed social determinants of health with the patient that could potentially impact subsequent diagnosis and treatment plans. On repeat assessment of the patient, reevaluation revealed that the patient is doing well and is in no acute distress. Patient symptoms have improved since he arrived to our emergency department. Repeat vital signs were all reviewed and noted to be stable. Differential diagnosis and treatment plan were discussed with the patient at bedside. Patient agrees with discussion and after shared medical decision making agrees with discharge. All questions were answered to the patient's satisfaction. Patient will follow up with his PCP in 3-5 days. Patient was provided with a Cardiology referral and instructed to call to set up a follow-up appointment if he continues to have these palpitation episodes as he may need to be fitted for a Holter monitor to evaluate for any cardiac arrhythmias. Patient was provided with strict return precautions and instructed to return to the emergency department if any new or worsening symptoms develop. The patient was discharged in stable condition. Lab Data 05/26/24 04:17 05/26/24 04:17 Labs: Lab Results 05/26/24 Range/Units 04:17 WBC 7.9 (4.5-10.0) K/mm3 RBC 4.72 (4.6-6.20) M/mm3 Hgb 14.4 (14.0-18.0) g/dL Hct 42.5 (42.0-52.0) % MCV 90.0 (80-100) fl MCH 30.5 (26-34) pg MCHC 33.9 (32-36) g/dl RDW 13.7 (11.5-14.5) % Plt Count 239 (150-375) k/mm3 MPV 9.8 (7.4-10.4) fl Immature Gran % (Auto) 0.3 (0-0.5) % Neut % (Auto) 74.8 H (45.5-73.1) % Lymph % (Auto) 15.4 L (18.3-44.2) % [place] % (Auto) 6.7 (2.6-8.5) % Eos % (Auto) 2.4 (0-4.4) % Baso % (Auto) 0.4 (0.2-1.2) % Lymph # (Auto) 1.22 (0.9-3.2) K/mm3 [place] # (Auto) 0.5 (0.1-0.6) K/mm3 Eos # (Auto) 0.2 (0-0.3) K/mm3 Baso # (Auto) 0.0 (0.0-0.1) K/mm3 Abs Immat Gran (auto) 0.02 (0.00-0.031) K/mm3 Absolute Neuts (auto) 5.9 (1.3-6.7) K/mm3 Absolute Nucleated RBC 0.000 (0.0-0.012) K/mm3 Nucleated RBC % 0.0 (0.0-0.2) % Sodium 140 (137-145) mmol/L Potassium 3.9 (3.4-5.0) mmol/L Chloride 104 (98-107) mmol/L Carbon Dioxide 28 (22-30) mmol/L Anion Gap 8 (4-12) mmol/L BUN 16 (9-20) mg/dL Creatinine 0.94 (0.7-1.3) mg/dL Estim Creat Clear Calc 122 ml/min Estimated GFR > 60 (59 - ) Glucose 108 (65-110) mg/dL Calcium 9.3 (8.4-10.2) mg/dL Magnesium 2.0 (1.6-2.3) mg/dL Total Bilirubin 0.7 (0.2-1.3) mg/dL AST 21 (17-59) U/L ALT 24 (6-50) U/L Alkaline Phosphatase 85 (38-126) U/L Troponin I < 0.012 (0.000-0.034) ng/mL NT-Pro-B Natriuret Pep < 20 (19.9-100) pg/mL Total Protein 7.0 (6.3-8.2) g/dL Albumin 4.0 (3.5-5.1) g/dL Influenza A (RT-PCR) Negative (Negative) Influenza B (RT-PCR) Negative (Negative) RSV (RT-PCR) Negative (Negative) SARS-CoV-2 RNA (RT-PCR) Negative (Negative) Discharge Plan Discharge Clinical Impression: Palpitations, Lightheadedness Patient Disposition: Home, Self-Care Condition: Improved Instructions: Antibiotic Form, Heart Palpitations (DC) Additional Instructions: Please follow-up with your primary doctor within the next 3-5 days. Return to the emergency department if any new or worsening symptoms develop. If you continue to have these palpitations/heart racing episodes then you need to follow-up with the utility worker production and your provided with one today, call on Monday to set up a follow-up appointment as you may need to be fitted for a Holter monitor to monitor for any cardiac arrhythmias. Patient Language: Azeri Prescriptions: No Action hydrocodone-acetaminophen 7.5-325 mg tablet 1 tablet PO Q6H PRN (Reason: Pain) cyclobenzaprine 10 mg tablet 10 mg PO BID PRN (Reason: Pain) irbesartan 150 mg tablet 150 mg PO DAILY amoxicillin-pot clavulanate [Augmentin XR] 1,000-62.5 mg tablet extended release 12 hr 1 tablet PO Q12H Qty: 20 0RF azithromycin [Zithromax TRI-PAUL] 500 mg tablet 500 mg PO DAILY 5 Days Qty: 5 0RF Follow-up/Referrals: Chano Lafleur MD [Physician] - 3 Days Koffi Talamantes MD [Primary Care Provider] - 3 Days Time of Disposition: 05:09
[2024-05-26 04:25] LABS: Basophils Percent Auto 0.4 % (0.2-1.2); Eosinophils Absolute Auto 0.2 K/mm3 (0-0.3); Eosinophils Percent Auto 2.4 % (0-4.4); Hematocrit 42.5 % (42.0-52.0); Hemoglobin 14.4 g/dL (14.0-18.0); Immature Granulocyte Absolute 0.02 K/mm3 (0.00-0.031); Immature Granulocyte Percent A 0.3 % (0-0.5); Lymphocytes Absolute Auto 1.22 K/mm3 (0.9-3.2); Lymphocytes Percent Auto 15.4 % (18.3-44.2); Mean Corpuscular HGB Conc 33.9 g/dl (32-36); Mean Corpuscular Hemoglobin 30.5 pg (26-34); Mean Platelet Volume 9.8 fl (7.4-10.4); Monocytes Absolute Auto 0.5 K/mm3 (0.1-0.6); Monocytes Percent Auto 6.7 % (2.6-8.5); Neutrophils Absolute Auto 5.9 K/mm3 (1.3-6.7); Neutrophils Percent Auto 74.8 % (45.5-73.1); Platelet Count Result 239 k/mm3 (150-375); Red Blood Count 4.72 M/mm3 (4.6-6.20); Red Cell Distribution Width 13.7 % (11.5-14.5); White Blood Count 7.9 K/mm3 (4.5-10.0)
[2024-05-26] MEDS: FAMOTIDINE 20 MG/2 ML VIAL IV PUSH (04:31)
[2024-05-26] MEDS: SODIUM CHLORIDE 0.9% IV 1,000 ML 999 ML IV CONT ×2 (04:31→05:08)
[2024-05-26 04:48] LABS: Alanine Aminotransferase 24 U/L (6-50); Alkaline Phosphatase 85 U/L (38-126); Anion Gap 8 mmol/L (4-12); Aspartate Amino Transferase 21 U/L (17-59); Bilirubin,Total 0.7 mg/dL (0.2-1.3); Blood Urea Nitrogen 16 mg/dL (9-20); Calcium 9.3 mg/dL (8.4-10.2); Carbon Dioxide 28 mmol/L (22-30); Chloride 104 mmol/L (98-107); Estimated CRCL calculation 122 ml/min; Estimated Glomerular Filt Rate > 60; Glucose 108 mg/dL (65-110); Potassium 3.9 mmol/L (3.4-5.0); Sodium 140 mmol/L (137-145)
[2024-05-26 04:51] LABS: NT Pro B Type Natriuretic Pept < 20 pg/mL (19.9-100); Troponin I < 0.012 ng/mL (0.000-0.034)
--- OUTSIDE RECORDS SUMMARY | 2024-05-26 04:51 | XMS_ITS | Clinical Summary ---
Author Organization [facility] Address [address] [place] [address] Care Team Providers Care Business Proposal Rep Name Role Phone Koffi Talamantes MD Primary Care Provider [phone] Allergies No known active allergies Medications HYDROcodone-acet [...] on file Legal Sex Male 11:14 AM [employer] Gender Identity Not on file Sexual Orientation Not on file Last Filed Vital Signs Vital Sign Reading Time Taken Comments Blood Pressure 158/98 05/22/2020 4:03 PM [employer] Pulse 98 05/22/2020 4:03 PM [employer] Temperature 37.2 C (98.9 F) 05/22/2020 11:35 AM [employer]LE [employer]ER Respiratory Rate 20 05/22/2020 4:03 PM [employer]ER Oxygen Saturation 100% 05/22/2020 4:03 PM [employer]ER Inhaled Oxygen Concentration - - Weight 141.5 kg (312 lb) 05/22/2020 11:35 AM [employer]LE [employer]ER Height 188 cm (6' 2 ) 05/22/2020 11:35 AM [employer]LE DYER Body Mass Index 40.06 05/22/2020 11:35 AM [employer]LE [employer]YER Plan of Treatment Health Maintenance Due Date [...] to complete this topic Insurance Care Teams Business Proposal Rep Relationship Specialty Start Date End Date Koffi Talamantes MD PCP - General FAMILY PRACTICE 05/22/20
[2024-05-26 04:59] LABS: Influenza A QL RT-PCR Negative (Negative); Influenza B QL RT-PCR Negative (Negative); RSV RNA, RT-PCR Negative (Negative); SARS-CoV-2 RNA PCR Negative (Negative)
[2024-05-26 06:27] VITALS: BP 114/78; PULSE 79; RESP 16; O2SAT 99
[2024-05-26 06:29] VITALS: BP 114/78; PULSE 79; RESP 16; O2SAT 99
== END 2024-05-26 06:33 | disposition home or self-care (01) ==
PROVIDERS: Emergency Provider Emergency Medicine; PCP Emergency Medicine
DX: R00.2 Palpitations (principal); R42 Dizziness and giddiness; Z20.822 Contact with and (suspected) exposure to COVID-19; E78.5 Hyperlipidemia, unspecified; I10 Essential (primary) hypertension; Z87.891 Personal history of nicotine dependence
CPT/HCPCS: 36415; 71045; 80053; 83735; 83880; 84484; 85025; 87637; 93005; 96361; 96374; 99284; J7030